=== PATIENT | male | born 1990 | race Caucasian/White ===

== ENCOUNTER 2017-04-11 22:00 | Emergency (ER) | payer BC, MEDICAID ==
[~2017-04-11] VITALS: Ht 188 cm; Wt 77.2 kg
[2017-04-11] MEDS ORDERED: SULF1TAB49 PO (22:32)
[2017-04-11 22:39] VITALS: BP 133/85
== END 2017-04-11 22:39 | disposition home or self-care (01) ==
LOC: ER 22:01
DX: L03.012 Cellulitis of left finger (principal); Z79.899 Other long term (current) drug therapy
CPT/HCPCS: 99283